=== PATIENT | male | born 1960 | race Caucasian/White ===

== ENCOUNTER → 2023-09-16 06:14 | Outpatient (REF) | payer BC, SELFPAY ==
[2023-09-16 07:06] LABS: % Basophils 1.5 % (0-2); % Eosinophils 3.6 % (0-6); % Immature Granulocytes 0.2 % (0-0.5); % Lymphocytes 20.3 % (20.5-51.1); % Monocytes 12.6 % (1.7-9.3); % Neutrophils 61.8 % (42.2-75.2); Absolute Basophils 0.1 10^3/uL (0-0.2); Absolute Eosinophils 0.2 10^3/uL (0-0.7); Absolute Monocytes 0.6 10^3/uL (0.1-0.6); Hematocrit 43.8 % (39.0-52.0); Hemoglobin 14.8 g/dL (13.0-18.0); Mean Corp Hgb Conc. 33.8 g/dL (33.0-37.0); Mean Corpuscular Hgb 29.4 pg (27.0-31.0); Mean Corpuscular Volume 87.1 fL (80.0-94.0); Mean Platelet Volume 8.6 fL (7.4-10.4); Nucleated Red Blood Cells % 0 % (-); Platelet Count 245 10^3/uL (130-400); Red Blood Cell Count 5.03 10^6/uL (4.70-6.10); Red Cell Dist. Width 13.5 % (11.5-14.5); White Blood Cell Count 4.8 10^3/uL (4.8-10.8)
[2023-09-16 07:33] LABS: ALT (SGPT) 24 U/L (0-50); AST (SGOT) 40 U/L (17-59); Alkaline Phosphatase 64 U/L (38-126); Blood Urea Nitrogen 20 mg/dl (9-20); Calcium 8.8 mg/dl (8.4-10.2); Carbon Dioxide 30 mmol/L (22-30); Chloride 104 mmol/L (98-107); Glucose 125 mg/dl (70-99); HDL Cholesterol 61 mg/dl; LDL Cholesterol, Calculated 47 mg/dl; Magnesium 2.2 mg/dl (1.6-2.3); Phosphorus 3.5 mg/dl (2.5-4.5); Potassium 4.5 mmol/L (3.5-5.1); Sodium 135 mmol/L (135-145); Total Bilirubin 0.7 mg/dl (0.2-1.3); Total Cholesterol 116 mg/dl (50-199); Total Protein 6.3 g/dl (6.3-8.2); Triglyceride 44 mg/dl (10-149); Uric Acid 4.4 mg/dl (3.5-8.5); Very Low Density Lipoprotein 8 mg/dl (0-30); eGFR > 60.00
[2023-09-16 07:40] LABS: Microalbumin, Random Urine < 0.6 mg/dl (0.6-1.7)
[2023-09-16 07:49] LABS: Free T4 0.94 ng/dl (0.78-2.19); Total Thyroxine 7.23 ug/dl (5.5-11.0)
[2023-09-16 08:03] LABS: TSH 3.01 uIU/ml (0.47-4.68)
[2023-09-16 08:56] LABS: Glycohemoglobin (HgbA1c) 6.9 % (4.0-5.6)
[2023-09-18 03:09] LABS: C-Peptide <0.1 ng/mL (0.5-3.3)
[2023-09-19 01:00] LABS: Fructosamine 270 umol/L (205-285)
== END ==
LOC: REG 06:14
PROVIDERS: ATTENDING PHYSICIAN Internal Medicine Endocrinology, Diabetes & Metabolism
DX: E10.65 Type 1 diabetes mellitus with hyperglycemia (principal); E78.2 Mixed hyperlipidemia; E55.9 Vitamin D deficiency, unspecified; D51.9 Vitamin B12 deficiency anemia, unspecified
CPT/HCPCS: 36415; 80053; 80061; 82043; 82570; 82985; 83036; 83735; 84100; 84436; 84439; 84443; 84550; 84681; 85025

== ENCOUNTER → 2023-12-17 06:22 | Outpatient (REF) | payer BC, SELFPAY ==
[2023-12-17 07:19] LABS: % Basophils 1.3 % (0-2); % Immature Granulocytes 0.4 % (0-0.5); % Lymphocytes 21.7 % (20.5-51.1); % Neutrophils 63.6 % (42.2-75.2); Absolute Basophils 0.1 10^3/uL (0-0.2); Absolute Eosinophils 0.1 10^3/uL (0-0.7); Absolute Monocytes 0.5 10^3/uL (0.1-0.6); Hematocrit 47.4 % (39.0-52.0); Hemoglobin 15.5 g/dL (13.0-18.0); Mean Corp Hgb Conc. 32.7 g/dL (33.0-37.0); Mean Corpuscular Hgb 29.4 pg (27.0-31.0); Mean Corpuscular Volume 89.8 fL (80.0-94.0); Mean Platelet Volume 8.9 fL (7.4-10.4); Nucleated Red Blood Cells % 0 % (-); Platelet Count 261 10^3/uL (130-400); Red Blood Cell Count 5.28 10^6/uL (4.70-6.10); Red Cell Dist. Width 13.2 % (11.5-14.5); White Blood Cell Count 4.7 10^3/uL (4.8-10.8)
[2023-12-17 07:20] LABS: Urine Albumin Negative (Neg - Trace); Urine Bilirubin Negative (Negative); Urine Character Clear (Clear); Urine Color Yellow; Urine Glucose Negative (Negative); Urine Ketone Negative (Negative); Urine Leukocyte Negative (Negative); Urine Nitrite Negative (Negative); Urine Occult Blood Negative (Negative); Urine Urobilinogen Negative (Neg - 1+)
[2023-12-17 07:50] LABS: Microalbumin, Random Urine <0.6 mg/dl (0.6-1.7)
[2023-12-17 08:06] LABS: ALT (SGPT) 20 U/L (0-50); AST (SGOT) 34 U/L (17-59); Albumin 4.1 g/dl (3.5-5.0); Alkaline Phosphatase 64 U/L (38-126); Blood Urea Nitrogen 16 mg/dl (9-20); Calcium 9.3 mg/dl (8.4-10.2); Carbon Dioxide 30 mmol/L (22-30); Chloride 105 mmol/L (98-107); Glucose 81 mg/dl (70-99); HDL Cholesterol 61 mg/dl; LDL Cholesterol, Calculated 46 mg/dl; Magnesium 2.2 mg/dl (1.6-2.3); Phosphorus 3.6 mg/dl (2.5-4.5); Potassium 4.6 mmol/L (3.5-5.1); Sodium 140 mmol/L (135-145); Total Bilirubin 0.4 mg/dl (0.2-1.3); Total Cholesterol 116 mg/dl (50-199); Total Protein 6.5 g/dl (6.3-8.2); Triglyceride 48 mg/dl (10-149); Uric Acid 3.7 mg/dl (3.5-8.5); Very Low Density Lipoprotein 9 mg/dl (0-30); eGFR > 60.00
[2023-12-17 08:11] LABS: Vitamin D, 25-OH*** 38.2 ng/mL (30-80)
[2023-12-17 08:24] LABS: TSH Reflex To Free T4 2.77 uIU/ml (0.47-4.68)
[2023-12-17 09:00] LABS: Folate > 20.0 ng/ml (2.76-20); Vitamin B12 294 pg/ml (239-931)
[2023-12-17 10:41] LABS: Glycohemoglobin (HgbA1c) 7.2 % (4.0-5.6)
[2023-12-19 10:30] LABS: Fructosamine 297 umol/L (205-285)
== END ==
LOC: REG 06:22
PROVIDERS: ATTENDING PHYSICIAN Internal Medicine Endocrinology, Diabetes & Metabolism
DX: E10.65 Type 1 diabetes mellitus with hyperglycemia (principal); E78.2 Mixed hyperlipidemia; E55.9 Vitamin D deficiency, unspecified
CPT/HCPCS: 36415; 80053; 80061; 81003; 82043; 82306; 82570; 82607; 82746; 82985; 83036; 83735; 84100; 84436; 84443; 84550; 85025

== ENCOUNTER → 2024-04-07 06:18 | Outpatient (REF) | payer MEDICARE, SELFPAY ==
[2024-04-07 07:20] LABS: % Basophils 1.5 % (0-2); % Eosinophils 3.9 % (0-6); % Immature Granulocytes 1.5 % (0-0.5); % Lymphocytes 18.4 % (20.5-51.1); % Monocytes 10.9 % (1.7-9.3); % Neutrophils 63.8 % (42.2-75.2); Absolute Basophils 0.1 10^3/uL (0-0.2); Absolute Eosinophils 0.2 10^3/uL (0-0.7); Absolute Immature Granulocytes 0.1 10^3/uL (0-0.05); Absolute Lymphocytes 1.1 10^3/uL (1.2-3.4); Absolute Monocytes 0.6 10^3/uL (0.1-0.6); Absolute Neutrophils 3.7 10^3/uL (1.4-6.5); Hematocrit 42.8 % (39.0-52.0); Hemoglobin 14.3 g/dL (13.0-18.0); Mean Corp Hgb Conc. 33.4 g/dL (33.0-37.0); Mean Corpuscular Hgb 29.3 pg (27.0-31.0); Mean Corpuscular Volume 87.7 fL (80.0-94.0); Mean Platelet Volume 9.3 fL (7.4-10.4); Nucleated Red Blood Cells % 0 % (-); Platelet Count 261 10^3/uL (130-400); Red Blood Cell Count 4.88 10^6/uL (4.70-6.10); Red Cell Dist. Width 13.4 % (11.5-14.5); White Blood Cell Count 5.9 10^3/uL (4.8-10.8)
[2024-04-07 07:34] LABS: Urine Albumin Negative (Neg - Trace); Urine Bilirubin Negative (Negative); Urine Character Clear (Clear); Urine Color Yellow; Urine Glucose Negative (Negative); Urine Ketone Negative (Negative); Urine Leukocyte Negative (Negative); Urine Nitrite Negative (Negative); Urine Occult Blood Negative (Negative); Urine Specific Gravity 1.015 (<1.030); Urine Urobilinogen Negative (Neg - 1+)
[2024-04-07 07:47] LABS: ALT (SGPT) 21 U/L (0-50); AST (SGOT) 37 U/L (17-59); Albumin 4.1 g/dl (3.5-5.0); Alkaline Phosphatase 56 U/L (38-126); Blood Urea Nitrogen 19 mg/dl (9-20); Calcium 9.2 mg/dl (8.4-10.2); Carbon Dioxide 30 mmol/L (22-30); Chloride 101 mmol/L (98-107); Glucose 152 mg/dl (70-99); HDL Cholesterol 61 mg/dl; LDL Cholesterol, Calculated 55 mg/dl; Phosphorus 3.6 mg/dl (2.5-4.5); Potassium 4.8 mmol/L (3.5-5.1); Sodium 139 mmol/L (135-145); Total Bilirubin 0.6 mg/dl (0.2-1.3); Total Cholesterol 130 mg/dl (50-199); Total Protein 6.3 g/dl (6.3-8.2); Triglyceride 72 mg/dl (10-149); Very Low Density Lipoprotein 14 mg/dl (0-30); eGFR > 60.00
[2024-04-07 07:55] LABS: Free T4 0.88 ng/dl (0.78-2.19); Total Thyroxine 6.79 ug/dl (5.5-11.0); Vitamin D, 25-OH*** 37.7 ng/mL (30-80)
[2024-04-07 08:08] LABS: TSH 4.08 uIU/ml (0.47-4.68)
[2024-04-07 08:44] LABS: Folate 14.5 ng/ml (2.76-20); Vitamin B12 258 pg/ml (239-931)
[2024-04-07 08:46] LABS: Microalbumin, Random Urine <0.6 mg/dl (0.6-1.7)
[2024-04-07 11:32] LABS: Glycohemoglobin (HgbA1c) 6.8 % (4.0-5.6)
[2024-04-08 22:18] LABS: Fructosamine 280 umol/L (205-285)
== END ==
LOC: REG 06:18
PROVIDERS: ATTENDING PHYSICIAN Internal Medicine Endocrinology, Diabetes & Metabolism
DX: E10.65 Type 1 diabetes mellitus with hyperglycemia (principal); E78.2 Mixed hyperlipidemia; E51.9 Thiamine deficiency, unspecified; D51.9 Vitamin B12 deficiency anemia, unspecified; E55.9 Vitamin D deficiency, unspecified
CPT/HCPCS: 80053; 80061; 81003; 82043; 82306; 82570; 82607; 82746; 82985; 83036; 83735; 84100; 84436; 84439; 84443; 84550; 85025

== ENCOUNTER → 2024-06-24 09:58 | Outpatient (REF) | payer MEDICARE, SELFPAY | LOC: PAVMRI 09:58 | PROVIDERS: ATTENDING PHYSICIAN Physician Assistant Surgical; FAMILY PHYSICIAN Family Medicine | DX: M25.561 Pain in right knee (principal) | CPT/HCPCS: 73721 ==

== ENCOUNTER → 2024-07-05 06:28 | Outpatient (REF) | payer MEDICARE, SELFPAY ==
[2024-07-05 08:54] LABS: Hematocrit 44.3 % (39.0-52.0); Hemoglobin 14.1 g/dL (13.0-18.0); Mean Corp Hgb Conc. 31.8 g/dL (33.0-37.0); Mean Corpuscular Hgb 29.7 pg (27.0-31.0); Mean Corpuscular Volume 93.3 fL (80.0-94.0); Mean Platelet Volume 9.5 fL (7.4-10.4); Platelet Count 262 10^3/uL (130-400); Red Blood Cell Count 4.75 10^6/uL (4.70-6.10); Red Cell Dist. Width 13.5 % (11.5-14.5); White Blood Cell Count 6.5 10^3/uL (4.8-10.8)
[2024-07-05 09:29] LABS: Blood Urea Nitrogen 18 mg/dl (9-20); Carbon Dioxide 30 mmol/L (22-30); Chloride 101 mmol/L (98-107); Glucose 130 mg/dl (70-99); Potassium 4.5 mmol/L (3.5-5.1); Sodium 141 mmol/L (135-145); eGFR > 60.00
== END ==
LOC: SDSPAT 06:28
PROVIDERS: ATTENDING PHYSICIAN Specialist; FAMILY PHYSICIAN Internal Medicine Endocrinology, Diabetes & Metabolism
DX: Z01.818 Encounter for other preprocedural examination (principal)
CPT/HCPCS: 36415; 80048; 85027; 93005

== ENCOUNTER → 2024-07-05 06:59 | Outpatient (REF) | payer MEDICARE, SELFPAY ==
[2024-07-05 08:07] LABS: % Basophils 1.2 % (0-2); % Eosinophils 2.9 % (0-6); % Immature Granulocytes 0.5 % (0-0.5); % Monocytes 9.8 % (1.7-9.3); % Neutrophils 67.6 % (42.2-75.2); Absolute Basophils 0.1 10^3/uL (0-0.2); Absolute Eosinophils 0.2 10^3/uL (0-0.7); Absolute Lymphocytes 1.1 10^3/uL (1.2-3.4); Absolute Monocytes 0.6 10^3/uL (0.1-0.6); Hematocrit 45.6 % (39.0-52.0); Hemoglobin 14.2 g/dL (13.0-18.0); Mean Corp Hgb Conc. 31.1 g/dL (33.0-37.0); Mean Corpuscular Hgb 28.8 pg (27.0-31.0); Mean Corpuscular Volume 92.5 fL (80.0-94.0); Mean Platelet Volume 9.2 fL (7.4-10.4); Nucleated Red Blood Cells % 0 % (-); Platelet Count 256 10^3/uL (130-400); Red Blood Cell Count 4.93 10^6/uL (4.70-6.10); Red Cell Dist. Width 13.6 % (11.5-14.5); Urine Albumin Negative (Neg - Trace); Urine Bilirubin Negative (Negative); Urine Character Clear (Clear); Urine Color Yellow; Urine Glucose Negative (Negative); Urine Ketone Negative (Negative); Urine Leukocyte Negative (Negative); Urine Nitrite Negative (Negative); Urine Occult Blood Negative (Negative); Urine Specific Gravity 1.015 (<1.030); Urine Urobilinogen Negative (Neg - 1+); White Blood Cell Count 5.9 10^3/uL (4.8-10.8)
[2024-07-05 08:33] LABS: ALT (SGPT) 21 U/L (0-50); AST (SGOT) 34 U/L (17-59); Albumin 4.2 g/dl (3.5-5.0); Alkaline Phosphatase 45 U/L (38-126); Blood Urea Nitrogen 18 mg/dl (9-20); Calcium 9.2 mg/dl (8.4-10.2); Carbon Dioxide 32 mmol/L (22-30); Chloride 101 mmol/L (98-107); Glucose 110 mg/dl (70-99); HDL Cholesterol 67 mg/dl; LDL Cholesterol, Calculated 49 mg/dl; Magnesium 2.4 mg/dl (1.6-2.3); Phosphorus 3.1 mg/dl (2.5-4.5); Potassium 4.5 mmol/L (3.5-5.1); Sodium 140 mmol/L (135-145); Total Bilirubin 0.6 mg/dl (0.2-1.3); Total Cholesterol 126 mg/dl (50-199); Total Protein 6.4 g/dl (6.3-8.2); Triglyceride 50 mg/dl (10-149); Very Low Density Lipoprotein 10 mg/dl (0-30); eGFR > 60.00
[2024-07-05 08:38] LABS: Microalbumin, Random Urine < 0.6 mg/dl (0.6-1.7)
[2024-07-05 08:55] LABS: Free T4 0.87 ng/dl (0.78-2.19); Total Thyroxine 6.66 ug/dl (5.5-11.0)
[2024-07-05 09:09] LABS: TSH 4.53 uIU/ml (0.47-4.68)
[2024-07-05 09:34] LABS: Vitamin D, 25-OH*** 34.3 ng/mL (30-80)
[2024-07-05 14:08] LABS: Glycohemoglobin (HgbA1c) 6.5 % (4.0-5.6)
[2024-07-06 16:24] LABS: Fructosamine 298 umol/L (205-285)
== END ==
LOC: REG 06:59
PROVIDERS: ATTENDING PHYSICIAN Internal Medicine Endocrinology, Diabetes & Metabolism
DX: E78.2 Mixed hyperlipidemia (principal); E55.9 Vitamin D deficiency, unspecified; D51.9 Vitamin B12 deficiency anemia, unspecified; R73.03 Prediabetes; R73.09 Other abnormal glucose
CPT/HCPCS: 36415; 80053; 80061; 81003; 82043; 82306; 82570; 82985; 83036; 83735; 84100; 84436; 84439; 84443; 85025

== ENCOUNTER 2024-07-06 06:31 | Day surgery (SDC) | payer MEDICARE, SELFPAY ==
[2024-07-05 14:05] VITALS: BMI 28.0
[2024-07-06] VITALS (9 sets, daily range): BP systolic 99–136; BP diastolic 65–85; BMI 28.0
[2024-07-06 07:49] LABS: Glucose - Point of Care 61 mg/dl (70-99)
[2024-07-06 07:52] LABS: Glucose - Point of Care 75 mg/dl (70-99)
[2024-07-06] MEDS: CELEBREX 200 MG PO (07:52)
[2024-07-06] MEDS: DEXTROSE 50% SYRINGE 12.5 GRAMS IV (08:10)
[2024-07-06 08:29] LABS: Glucose - Point of Care 81 mg/dl (70-99)
[2024-07-06 09:35] LABS: Glucose - Point of Care 106 mg/dl (70-99)
== END 2024-07-06 11:09 | disposition home or self-care (01) ==
LOC: SDS 06:31
PROVIDERS: ATTENDING PHYSICIAN Specialist
DX: S83.241A Other tear of medial meniscus, current injury, right knee, initial encounter (principal); X58.XXXA Exposure to other specified factors, initial encounter
CPT/HCPCS: 29881; 82962

== ENCOUNTER → 2024-08-09 08:14 | Outpatient (REF) | payer MEDICARE, SELFPAY | LOC: RAD 08:14 | PROVIDERS: ATTENDING PHYSICIAN Physician Assistant; FAMILY PHYSICIAN Family Medicine | DX: K75.4 Autoimmune hepatitis (principal) | CPT/HCPCS: 76700 ==

== ENCOUNTER → 2024-10-07 06:25 | Outpatient (REF) | payer MEDICARE, SELFPAY ==
[2024-10-07 07:38] LABS: % Basophils 1.7 % (0-2); % Eosinophils 2.8 % (0-6); % Immature Granulocytes 0.2 % (0-0.5); % Lymphocytes 19.1 % (20.5-51.1); % Monocytes 13.2 % (1.7-9.3); Absolute Basophils 0.1 10^3/uL (0-0.2); Absolute Eosinophils 0.1 10^3/uL (0-0.7); Absolute Lymphocytes 0.9 10^3/uL (1.2-3.4); Absolute Monocytes 0.6 10^3/uL (0.1-0.6); Absolute Neutrophils 2.9 10^3/uL (1.4-6.5); Hematocrit 44.3 % (39.0-52.0); Hemoglobin 14.5 g/dL (13.0-18.0); Mean Corp Hgb Conc. 32.7 g/dL (33.0-37.0); Mean Corpuscular Hgb 29.4 pg (27.0-31.0); Mean Corpuscular Volume 89.7 fL (80.0-94.0); Mean Platelet Volume 9.5 fL (7.4-10.4); Nucleated Red Blood Cells % 0 % (-); Platelet Count 241 10^3/uL (130-400); Red Blood Cell Count 4.94 10^6/uL (4.70-6.10); Red Cell Dist. Width 13.1 % (11.5-14.5); White Blood Cell Count 4.6 10^3/uL (4.8-10.8)
[2024-10-07 08:06] LABS: ALT (SGPT) 20 U/L (0-50); AST (SGOT) 35 U/L (17-59); Albumin 4.1 g/dl (3.5-5.0); Alkaline Phosphatase 61 U/L (38-126); Blood Urea Nitrogen 14 mg/dl (9-20); Calcium 9.3 mg/dl (8.4-10.2); Carbon Dioxide 28 mmol/L (22-30); Chloride 103 mmol/L (98-107); Glucose 109 mg/dl (70-99); HDL Cholesterol 63 mg/dl; LDL Cholesterol, Calculated 44 mg/dl; Magnesium 2.2 mg/dl (1.6-2.3); Phosphorus 3.5 mg/dl (2.5-4.5); Potassium 4.5 mmol/L (3.5-5.1); Sodium 137 mmol/L (135-145); Total Bilirubin 0.7 mg/dl (0.2-1.3); Total Cholesterol 118 mg/dl (50-199); Total Protein 6.3 g/dl (6.3-8.2); Triglyceride 55 mg/dl (10-149); Uric Acid 4.5 mg/dl (3.5-8.5); Very Low Density Lipoprotein 11 mg/dl (0-30); eGFR > 60.00
[2024-10-07 08:24] LABS: Glycohemoglobin (HgbA1c) 6.6 % (4.0-5.6)
[2024-10-07 08:38] LABS: Microalbumin, Random Urine <0.6 mg/dl (0.6-1.7)
[2024-10-07 08:40] LABS: Vitamin D, 25-OH*** 28.6 ng/mL (30-80)
[2024-10-07 08:54] LABS: TSH Reflex To Free T4 3.53 uIU/ml (0.47-4.68)
[2024-10-10 00:48] LABS: Thyroxin Binding Globulin 19.8 ug/mL (13.0-30.0)
[2024-10-10 07:32] LABS: Fructosamine 285 umol/L (205-285)
== END ==
LOC: REG 06:25
PROVIDERS: ATTENDING PHYSICIAN Internal Medicine Endocrinology, Diabetes & Metabolism
DX: I10 Essential (primary) hypertension (principal); E10.65 Type 1 diabetes mellitus with hyperglycemia; E78.2 Mixed hyperlipidemia; E51.9 Thiamine deficiency, unspecified; E55.9 Vitamin D deficiency, unspecified
CPT/HCPCS: 36415; 80053; 80061; 82043; 82306; 82570; 82985; 83036; 83735; 84100; 84436; 84442; 84443; 84550; 85025

== ENCOUNTER → 2024-12-10 06:19 | Outpatient (REF) | payer MEDICARE, SELFPAY ==
[2024-12-10 07:31] LABS: % Basophils 0.9 % (0-2); % Eosinophils 2.2 % (0-6); % Immature Granulocytes 0.2 % (0-0.5); % Lymphocytes 20.4 % (20.5-51.1); % Monocytes 12.4 % (1.7-9.3); % Neutrophils 63.9 % (42.2-75.2); Absolute Basophils 0.1 10^3/uL (0-0.2); Absolute Eosinophils 0.1 10^3/uL (0-0.7); Absolute Lymphocytes 1.1 10^3/uL (1.2-3.4); Absolute Monocytes 0.7 10^3/uL (0.1-0.6); Absolute Neutrophils 3.6 10^3/uL (1.4-6.5); Hematocrit 44.8 % (39.0-52.0); Hemoglobin 14.6 g/dL (13.0-18.0); Mean Corp Hgb Conc. 32.6 g/dL (33.0-37.0); Mean Corpuscular Hgb 29.4 pg (27.0-31.0); Mean Corpuscular Volume 90.3 fL (80.0-94.0); Mean Platelet Volume 9.4 fL (7.4-10.4); Nucleated Red Blood Cells % 0 % (-); Platelet Count 259 10^3/uL (130-400); Red Blood Cell Count 4.96 10^6/uL (4.70-6.10); Red Cell Dist. Width 13.5 % (11.5-14.5); White Blood Cell Count 5.6 10^3/uL (4.8-10.8)
[2024-12-10 07:48] LABS: Urine Albumin Negative (Neg - Trace); Urine Bilirubin Negative (Negative); Urine Character Clear (Clear); Urine Color Yellow; Urine Glucose Negative (Negative); Urine Ketone Negative (Negative); Urine Leukocyte Negative (Negative); Urine Nitrite Negative (Negative); Urine Occult Blood Negative (Negative); Urine Specific Gravity 1.015 (<1.030); Urine Urobilinogen Negative (Neg - 1+)
[2024-12-10 08:04] LABS: ALT (SGPT) 18 U/L (0-50); AST (SGOT) 28 U/L (17-59); Albumin 4.2 g/dl (3.5-5.0); Alkaline Phosphatase 50 U/L (38-126); Blood Urea Nitrogen 18 mg/dl (9-20); Calcium 9.6 mg/dl (8.4-10.2); Carbon Dioxide 30 mmol/L (22-30); Chloride 104 mmol/L (98-107); Glucose 81 mg/dl (70-99); HDL Cholesterol 71 mg/dl; LDL Cholesterol, Calculated 42 mg/dl; Magnesium 2.3 mg/dl (1.6-2.3); Phosphorus 3.6 mg/dl (2.5-4.5); Potassium 4.7 mmol/L (3.5-5.1); Sodium 140 mmol/L (135-145); Total Bilirubin 0.8 mg/dl (0.2-1.3); Total Cholesterol 122 mg/dl (50-199); Total Protein 6.5 g/dl (6.3-8.2); Triglyceride 48 mg/dl (10-149); Uric Acid 4.9 mg/dl (3.5-8.5); Very Low Density Lipoprotein 9 mg/dl (0-30); eGFR > 60.00
[2024-12-10 08:31] LABS: Free T4 1.14 ng/dl (0.78-2.19); Total Thyroxine 6.89 ug/dl (5.5-11.0); Vitamin D, 25-OH*** 38.2 ng/mL (30-80)
[2024-12-10 08:44] LABS: TSH 3.05 uIU/ml (0.47-4.68)
[2024-12-10 09:20] LABS: Folate 11.7 ng/ml (2.76-20); Vitamin B12 214 pg/ml (239-931)
[2024-12-10 12:59] LABS: Glycohemoglobin (HgbA1c) 6.4 % (4.0-5.6)
[2024-12-10 14:45] LABS: Microalbumin, Random Urine <0.6 mg/dl (0.6-1.7)
[2024-12-12 05:01] LABS: Fructosamine 294 umol/L (205-285)
== END ==
LOC: REG 06:19
PROVIDERS: ATTENDING PHYSICIAN Internal Medicine Endocrinology, Diabetes & Metabolism
DX: E10.65 Type 1 diabetes mellitus with hyperglycemia (principal); D51.9 Vitamin B12 deficiency anemia, unspecified; K90.0 Celiac disease; E78.2 Mixed hyperlipidemia; I10 Essential (primary) hypertension; E55.9 Vitamin D deficiency, unspecified
CPT/HCPCS: 36415; 80053; 80061; 81003; 82043; 82306; 82570; 82607; 82746; 82985; 83036; 83735; 84100; 84436; 84439; 84443; 84550; 85025

== ENCOUNTER → 2025-04-13 06:22 | Outpatient (REF) | payer MEDICARE, SELFPAY ==
[2025-04-13 08:09] LABS: Urine Character Clear (Clear)
[2025-04-13 08:16] LABS: Hematocrit 44.9 % (39.0-52.0); Hemoglobin 14.5 g/dL (13.0-18.0); Mean Corp Hgb Conc. 32.3 g/dL (33.0-37.0); Mean Corpuscular Volume 89.6 fL (80.0-94.0); Nucleated Red Blood Cells % 0 % (-); Platelet Count 248 10^3/uL (130-400); Red Cell Dist. Width 13.2 % (11.5-14.5)
[2025-04-13 08:24] LABS: Vitamin D, 25-OH*** 49.2 ng/mL (30-80)
[2025-04-13 08:37] LABS: TSH 3.70 uIU/ml (0.47-4.68)
[2025-04-13 08:44] LABS: ALT (SGPT) 18 U/L (0-50); AST (SGOT) 30 U/L (17-59); Albumin 4.5 g/dl (3.5-5.0); Alkaline Phosphatase 48 U/L (38-126); Blood Urea Nitrogen 21 mg/dl (9-20); Calcium 9.2 mg/dl (8.4-10.2); Carbon Dioxide 29 mmol/L (22-30); Chloride 105 mmol/L (98-107); Glucose 148 mg/dl (70-99); HDL Cholesterol 68 mg/dl; LDL Cholesterol, Calculated 39 mg/dl; Magnesium 2.2 mg/dl (1.6-2.3); Potassium 4.7 mmol/L (3.5-5.1); Sodium 138 mmol/L (135-145); Total Protein 6.6 g/dl (6.3-8.2); Very Low Density Lipoprotein 9 mg/dl (0-30); eGFR > 60.00
[2025-04-13 09:20] LABS: Microalb - Urine Creatinine 157.400 mg/dl
[2025-04-13 09:24] LABS: Microalbumin, Random Urine < 0.6 mg/dl (0.6-1.7)
[2025-04-13 10:12] LABS: Glycohemoglobin (HgbA1c) 6.2 % (4.0-5.6)
== END ==
LOC: REG 06:22
PROVIDERS: ATTENDING PHYSICIAN Internal Medicine Endocrinology, Diabetes & Metabolism
DX: E10.65 Type 1 diabetes mellitus with hyperglycemia (principal); E78.2 Mixed hyperlipidemia; I10 Essential (primary) hypertension; E55.9 Vitamin D deficiency, unspecified
CPT/HCPCS: 36415; 80053; 80061; 81003; 82043; 82306; 82570; 82985; 83036; 83735; 84100; 84436; 84439; 84443; 85025

== ENCOUNTER → 2025-08-02 06:19 | Outpatient (REF) | payer MEDICARE, SELFPAY ==
[2025-08-02 07:13] LABS: Hematocrit 44.2 % (39.0-52.0); Hemoglobin 14.3 g/dL (13.0-18.0); Mean Corp Hgb Conc. 32.4 g/dL (33.0-37.0); Mean Corpuscular Volume 88.9 fL (80.0-94.0); Nucleated Red Blood Cells % 0 % (-); Platelet Count 254 10^3/uL (130-400); Red Cell Dist. Width 13.2 % (11.5-14.5)
[2025-08-02 07:41] LABS: ALT (SGPT) 25 U/L (0-50); AST (SGOT) 35 U/L (17-59); Albumin 4.3 g/dl (3.5-5.0); Alkaline Phosphatase 56 U/L (38-126); Blood Urea Nitrogen 21 mg/dl (9-20); Calcium 9.3 mg/dl (8.4-10.2); Carbon Dioxide 29 mmol/L (22-30); Chloride 103 mmol/L (98-107); Glucose 159 mg/dl (70-99); HDL Cholesterol 62 mg/dl; LDL Cholesterol, Calculated 56 mg/dl; Magnesium 2.3 mg/dl (1.6-2.3); Potassium 5.1 mmol/L (3.5-5.1); Sodium 136 mmol/L (135-145); Total Protein 6.7 g/dl (6.3-8.2); Uric Acid 4.5 mg/dl (3.5-8.5); Very Low Density Lipoprotein 11 mg/dl (0-30); eGFR > 60.00
[2025-08-02 08:00] LABS: Vitamin D, 25-OH*** 35.0 ng/mL (30-80)
[2025-08-02 08:02] LABS: Urine Character Clear (Clear)
[2025-08-02 08:10] LABS: TSH 4.51 uIU/ml (0.47-4.68)
[2025-08-02 08:45] LABS: Microalb - Urine Creatinine 133.500 mg/dl
[2025-08-02 08:46] LABS: Folate 17.2 ng/ml (2.76-20); Vitamin B12 242 pg/ml (239-931)
[2025-08-02 08:46] LABS: Microalbumin, Random Urine < 0.6 mg/dl (0.6-1.7)
[2025-08-02 08:50] LABS: Urine Red Blood Cell 0-2 /HPF (0-2); Urine Squamous Cell 0-2 /LPF (Few); Urine White Cell 0-2 /HPF (0-5)
[2025-08-02 09:06] LABS: Glycohemoglobin (HgbA1c) 6.3 % (4.0-5.9)
== END ==
LOC: REG 06:19
PROVIDERS: ATTENDING PHYSICIAN Internal Medicine Endocrinology, Diabetes & Metabolism
DX: E10.65 Type 1 diabetes mellitus with hyperglycemia (principal); E78.41 Elevated Lipoprotein(a); E55.9 Vitamin D deficiency, unspecified; Z79.899 Other long term (current) drug therapy
CPT/HCPCS: 36415; 80053; 80061; 81003; 81015; 82043; 82306; 82570; 82607; 82746; 82985; 83036; 83735; 84100; 84436; 84439; 84443; 84550; 85025